=== PATIENT | female | born 1995 | race Asian ===

== ENCOUNTER 2020-05-17 12:19 | Emergency (ER) | payer OTHER ==
[~2020-05-17] VITALS: Ht 170.2 cm; Wt 81.8 kg
[~2020-05-17 12:19] MED LIST: AMLO-258 PO; HYDR50CA9 PO
[2020-05-17 12:24] VITALS: BP 143/89
[2020-05-17 14:38] LABS: INFLUENZA TYPE A NEGATIVE FOR TYPE A (NEGATIVE); INFLUENZA TYPE B NEGATIVE FOR TYPE B (NEGATIVE)
== END 2020-05-17 15:10 | disposition home or self-care (01) ==
LOC: EMS 12:22
DX: J06.9 Acute upper respiratory infection, unspecified (principal); I10 Essential (primary) hypertension; J45.909 Unspecified asthma, uncomplicated; Z79.899 Other long term (current) drug therapy; Z20.828 Contact with and (suspected) exposure to other viral communicable diseases
CPT/HCPCS: 87804; 99283; U0003

== ENCOUNTER 2021-03-11 04:16 | Emergency (ER) | payer BC, OTHER ==
[~2021-03-11] VITALS: Ht 167.6 cm; Wt 83.2 kg
[2021-03-11 04:59] VITALS: BP 148/89
[2021-03-11] MEDS ORDERED: ALBUTEROL SULFATE HFA 90 MCG/PUFF 8 GM INHALER IH ONE (05:15)
== END 2021-03-11 05:30 | disposition home or self-care (01) ==
LOC: EMS 04:18
DX: J06.9 Acute upper respiratory infection, unspecified (principal); J45.909 Unspecified asthma, uncomplicated; I10 Essential (primary) hypertension; Z88.0 Allergy status to penicillin
CPT/HCPCS: 94640; 99283; J3535